=== PATIENT | female | born 1990 | race Two or more races ===

== ENCOUNTER 2019-03-18 18:55 | Emergency (ER) | payer OTHER ==
[2019-03-18 19:33] VITALS: TEMP 98.6; BMI 32.1
[2019-03-18] MEDS ORDERED: ONDANSETRON *ODT* 4 MG TABLET SL ONE (19:43)
[2019-03-18] MEDS ORDERED: ONDANSETRON *ODT* 4 MG TABLET ONE (19:47)
--- NOTE | 2019-03-18 19:51 | PDOC ---
Documentation entered by Simin Ta SCRIBE, acting as scribe for Gennaro Saini MD. Gennaro Saini MD: This documentation has been prepared by the Cely edmondson Sammi, SCRIBE, under my direction and personally reviewed by me in its entirety. I confirm that the documentation accurately reflects all work, treatment, procedures, and medical decision making performed by me. History of Present Illness - General Chief Complaint: Vomiting/Diarrhea Stated Complaint: N/V/D History Source: Patient Exam Limitations: No Limitations - History of Present Illness Initial Comments: 03/18/19 19:44 The patient is a 29 year old female who presents for evaluation of 1 day of nausea and several episodes of vomiting and diarrhea, last episode of diarrhea 5 :30pm. She reports decreased oral intake. Denies sick contact. The patient is currently on her menstrual period. Patient refuses IV fluids as she "has had bad experiences in the past". PAST MEDICAL HISTORY: no significant history PAST SURGICAL HISTORY: no significant history FAMILY HISTORY: no pertinent history SOCIAL HISTORY: Pt lives with family and is employed. MEDICATIONS: reviewed ALLERGIES: As per nursing notes Adult ROS General: No fevers or chills, no weakness, no weight loss HEENT: No change in vision. No sore throat,. No ear pain CardioVascular: No chest pain or shortness of breath Respiratory:No cough, or wheezing. Gastrointestinal: +nausea, vomiting and diarrhea. Genitourinary: No dysuria, hematuria, or frequency Musculoskeletal: No joint or muscle pain or swelling Neurologic: No headache, vertigo, dizziness or loss of consciousness All other systems reviewed and normal Adult Exam: General: Well-nourished well-developed individual, no acute distress HEENT: Throat: Normal, tonsils normal, no erythema or exudate Neck: Supple, no meningeal signs, no lymphadenopathy Eyes::Pupils equal reactive and round, extraocular motion intact Chest: Nontender to palpation Cardiac: S1-S2 normal, regular rate and rhythm, no murmurs rubs or gallops Respiratory: Lungs clear to auscultation bilateral Abdomen: Soft, nondistended, normal bowel sounds, nontender to palpation diffusely Extremities: Warm, dry, no cyanosis, clubbing, or edema Skin: No rashes Neuro: Alert and oriented x3, nonfocal exam, grossly intact, normal gait Psych: Normal mood and affect 03/18/19 19:50 Assessment and plan: This is a 29-year-old female who comes in complaining of nausea vomiting and diarrhea since this morning. There are other family members with very mild symptoms similar to hers. Patient attended a family event yesterday but denies anybody else getting sick from the food. Patient refuses IV hydration as well as labs. Will give patient some Zofran and Imodium and a p.o. challenge once patient is able to tolerate some p.o.'s will discharge patient 03/18/19 20:20 Reevaluation: Patient given oral Zofran and Imodium. Patient's had no further episodes of vomiting or diarrhea here in the emergency department Patient able to tolerate p.o.'s patient discharged to follow-up with her primary care doctor prescription for Zofran sent to the pharmacy. Past History - Past Medical History Allergies/Adverse Reactions: Allergies Allergy/AdvReac Type Severity Reaction Status Date / Time ibuprofen [From Motrin] Allergy Intermediate Itching Verified 01/24/16 15:10 shellfish derived Allergy Intermediate Rash Verified 03/18/19 19:21 SEAFOOD Allergy Intermediate Rash Uncoded 01/24/16 19:37 Home Medications: Ambulatory Orders Ondansetron [Zofran *Odt*] 4 mg SL TID PRN #12 od.tablet 03/18/19 Asthma: No Cancer: No Cardiac Disorders: No Diabetes: No HTN: Yes (Gestational HTN X3) Seizures: No Thyroid Disease: No - Reproductive History (#): 3 Para: 2 Cervical CA: No Dysfunctional Uterine Bleeding: No Ectopic : No Endometrial CA: No Polycystic Ovaries: No Therapeutic (s) & number: No Tubal Ligation: No - Psycho Social/Smoking Cessation Hx Smoking History: Never smoked Have you smoked in the past 12 months: No Hx Alcohol Use: No Drug/Substance Use Hx: No Substance Use Type: None Hx Substance Use Treatment: No *Physical Exam - Vital Signs Last Vital Signs Temp Pulse Resp BP Pulse Ox 98.6 F 66 15 188/100 H 100 03/18/19 19:20 03/18/19 19:20 03/18/19 19:20 03/18/19 19:20 03/18/19 19:20 Discharge - Discharge Information Problems reviewed: Yes Clinical Impression/Diagnosis: Nausea and vomiting, Diarrhea Condition: Good Disposition: HOME - Admission No - Additional Discharge Information Prescriptions: Ondansetron [Zofran *Odt*] 4 mg SL TID PRN #12 od.tablet PRN Reason: Nausea - Follow up/Referral - Patient Discharge Instructions Additional Instructions: For nausea and vomiting take Zofran 1 tablet as often as 3 times a day. For diarrhea get [id number] Imodium and take as directed on the box. Clear liquids only for the next 6 hours.. After that if you have had no further vomiting you may have bananas, rice, applesauce, or toast. If no further vomiting for another 8 hours you may have regular food. If you vomit again then nothing to eat or drink for 2 hours. then start back with the clear liquids. Return to the emergency department immediately with ANY new, persistent or worsening symptoms. You MUST call and follow up with your doctor tomorrow if not better. Please make sure your doctor reviews the results of your emergency evaluation. - Post Discharge Activity Work/Back to School Note: Back to Work
[2019-03-18 20:03] VITALS: BP 164/88; PULSE 95
[2019-03-18] MEDS ORDERED: LOPERAMIDE HCL 2 MG CAPSULE PO ONE (20:20)
[2019-03-18] MEDS ORDERED: LOPERAMIDE HCL 2 MG CAPSULE ONE (20:22)
== END 2019-03-18 20:56 | disposition home or self-care (01) ==
LOC: FER 18:55
DX: R11.2 Nausea with vomiting, unspecified (principal); R19.7 Diarrhea, unspecified; Z91.013 Allergy to seafood; Z88.8 Allergy status to other drugs, medicaments and biological substances
CPT/HCPCS: 99281-25; Q0162